=== PATIENT | male | born 1960 | race Caucasian/White ===

== ENCOUNTER 2016-07-14 14:18 | Emergency (ER) | payer OTHER ==
--- NOTE | 2016-07-14 17:54 | DIAGNOSTIC IMAGING REPORT ---
PROCEDURE: CT SOFT TISSUE NECK WITH CONT INDICATION: Submandibular swelling. Pain. TECHNIQUE: 94 ml of Isovue 370 injected intravenously and axial images were obtained from the skull base through the upper mediastinum with sagittal and coronal reformations. In addition, angled axial oblique images were obtained ( avoiding dental hardware). COMPARISON: None. FINDINGS: There is mild to moderate generalized soft tissue edema of the superficial subcutaneous tissues of the submandibular region (superficial to the platysma). This is associated with mildly prominent submandibular lymph nodes. There is no evidence of fluid collection or abscess. The rest of the soft tissues of the neck are within normal limits. Airway, thyroid gland, submandibular glands, and parotid glands are within normal limits. Sinuses and mastoids are within normal limits (minor mucosal thickening in the maxillary sinuses appears chronic). Portions of the mandible are seen (of partially obscured by metal dental artifact). Moderate degenerate changes cervical spine. IMPRESSION: 1. Mild to moderate generalized edema of the superficial subcutaneous tissues of the submandibular region (superficial to the platysma). 2. Mildly prominent submandibular lymph nodes. 3. Findings are most compatible with superficial submandibular cellulitis. 4. No evidence of fluid collection or abscess. 5. Findings discussed with Dr. Laz Banuelos. All CT scans at this facility use dose modulation, iterative reconstruction, and/or weight-based dosing when appropriate to reduce radiation dose to as low as reasonably achievable.
--- NOTE | 2016-07-14 17:57 | ED NURSING NOTES ---
Clinical Report - Nurses [facility] [address] [place] [address] 07/14/2016 14:21 Patient: JANELL LEI TRIAGE Triage time 14:59 Jul 14 2016. Chief Complaint: "FLU", FEVER and BODY ACHES and known FLU EXPOSURE. Alert. No acute distress. --15:09 Jenny Parson R.N. 14:59 07/14/16. BP: 144/60. HR: 73. RR: 18. O2 saturation: 97%. Pain level now 8/10. --15: Jenny Parson R.N. Acuity: LEVEL 4. --15: Jenny Parson R.N. Weight: 136 kg stated. Height/Length: 70 inches Per Patient. BMI: 43. --14:59 Jenny Parson R.N. Medications ALPRAZolam Oral 0.5 mg, as needed. --15:05 Jenny Parson R.N. Naproxen Oral 500 mg, daily. --15:05 Jenny Parson R.N. Atorvastatin Calcium Oral 40 mg. --15:05 Jenny Parson R.N. Lisinopril Oral 12.5 mg. --15:06 Jenny Parson R.N. Medication/allergy information source: the patient. --15:09 Jenny Parson R.N. Allergies None. --15:06 Jenny Parson R.N. History Arrived by private vehicle. Historian: patient. Accompanied by family. Primary physician (Dr. Basurto). ( Sick since the , saw Dr. Basurto for "cold" and sent home. Pt states he is getting worse, swollen glands, fever, muscle aches.). Onset. (since ). He has had contact with a sick individual. He has had chills, fatigue and a headache. Treatment CODING COMPLIANCE SPECIALIST: (nothing). PAST MEDICAL HX: Immunizations: seasonal influenza. SOCIAL HX: Never smoker. Alcohol use. No drug use. No recent travel. No known contact with a sick individual. FALL RISK ASSESSMENT: Fall risk assessment completed. No fall risk identified. NUTRITIONAL RISK ASSESSMENT: The nutritional risk assessment revealed no deficiencies. FUNCTIONAL ASSESSMENT: Functional assessment: no impairments noted. LEARNING NEEDS ASSESSMENT: The learning needs assessment revealed no barriers. SKIN INTEGRITY ASSESSMENT: Skin integrity risk assessment completed. No skin integrity risk identified. --15:09 Jenny Prason R.N. PROBLEMS: Anxiety Reaction. Hypertension. Hypercholesterolemia. --15:07 Jenny Parson R.N. ADDITIONAL SURGERIES: Appendectomy. Carpal Tunnel Surgery. Knee Surgery. Lap Band. Spermadical Marjorie. --15:07 Jenny Parson R.N. Interventions ID band on patient. To room. --15:09 Jenny Parson R.N. NURSING PROGRESS NOTES :patient confirmed. Flu swab obtained by RN via nasal swab. Labeled in the presence of the patient. --15:12 Jenny Parson R.N. 16:33 07/14/16. BP: 157/92. HR: 86. RR: 16. O2 saturation: 96%. Temp: 98.6 F (oral). Pain level now: 01/19. --16:35 Arthur Lopez R.N. The patient reports no complaints and he is calm and resting quietly. GENERAL / NEURO / PSYCH: The patient reports headache. RESPIRATORY: The patient reports cough. No respiratory distress. Breath sounds normal. CVS: Capillary refill within normal limits. GI / : The patient reports diarrhea. Abdomen nontender. SKIN: Skin is warm and dry. Call light placed in reach. Side rails up x 1. Bed placed in lowest position. Brakes of bed on. --16:35 Arthur Lopez R.N. 17:02 07/14/2016 Site #1 started via IV in the right forearm with an 18g angiocath; one attempt. Blood drawn: rainbow set. Saline lock flushed with 10 mL saline. --17:02 Arthur Lopez R.N. 18:00 07/14/2016 Bactrim DS (Sulfamethoxazole-TMP DS) PO Tablets 1 tab given. Allergies verified and confirmed 5 rights. --18:00 Arthur Lopez R.N. DISPOSITION / DISCHARGE Condition at departure: improved. The goals identified in the patient's plan of care were met. No learning barriers present. Discharge instructions provided and reviewed with the patient. Reviewed medication(s) side effects, precautions, dosing and course information. Prescription(s) given to the patient. Reviewed fever care instructions. Reviewed referral to a primary care physician. Patient verbalized understanding. Written instructions provided in Iranian. The patient was discharged home and accompanied by spouse. He left the Emergency Department ambulatory and via private vehicle. Spouse driving. FALL RISK ASSESSMENT: Fall risk assessment completed. No fall risk identified. --18:05 Arthur Lopez R.N. Departure time: 1805 PM. --18:05 Arthur Lopez R.N. 18:06 07/14/16. BP: 130/81. HR: 72. RR: 16. O2 saturation: 99%. Temp: 98.2 F (oral). Pain level now: 0/10. --18:07 Arthur Lopez R.N. Departure time: 1806 PM. --18:07 Arthur Lopez R.N. Locked/Released at 07/14/2016 18:07 by Arthur Lopez R.N.
--- NOTE | 2016-07-14 17:57 | ED ORDER SUMMARY ---
..... Patient: JANELL LEI OrderSheet [facility] VisitID: [id number] [address] [place] [address] 55y, M Registration Date/Time: 07/14/2016 ORDER SHEET Weight: 136.0 kg (stated) Allergies: None GENERAL ORDERS: Rapid Influenza Screen (Nasal Pharyngeal) (nasal) Urgent (15:09 07/14/2016 SBalde R.N. per protocol) (Ack 15:10 IJurca ER Tech1) (Sent 15:13 IJurca ER Tech1) (16:49 IJurca ER Tech1) CT Soft Tissue Neck w Cont (Yes) (pending ) Urgent (16:48 07/14/2016 Wesley WHITFIELD) (Ack 16:51 IJurca ER Tech1) (17:02 HOShaughnessy R.N.) CBC w Diff Urgent (16:48 07/14/2016 Wesley WHITFIELD) (Ack 16:51 IJurca ER Tech1) (17:02 HOShaughnessy R.N.) CMP Urgent (16:48 07/14/2016 Wesley WHITFIELD) (Ack 16:51 IJurca ER Tech1) (17:02 HOShaughnessy R.N.) MEDICATION ORDERS: Bactrim DS PO (Tablet 800-160 mg) 1 tab (NOW) (17:56 07/14/2016 Wesley WHITFIELD) (18:00 HOShaughnessy R.N.) IV FLUIDS: ORDER SHEET NOTES: [Electronically signed by Arthur Lopez R.N. (18:07 07/14/2016)] [Electronically signed by Laz Banuelos MD (19:23 07/15/2016)] [Electronically locked/signed by Arthur Lopez R.N. (18:07 07/14/2016)]
--- NOTE | 2016-07-14 17:57 | ED ORDER SUMMARY ---
..... Patient: JANELL LEI OrderSheet [facility] VisitID: [id number] [address] [place] [address] 55y, M Registration Date/Time: 07/14/2016 ORDER SHEET Weight: 136.0 kg (stated) Allergies: None GENERAL ORDERS: Rapid Influenza Screen (Nasal Pharyngeal) (nasal) Urgent (15:09 07/14/2016 SBalde R.N. per protocol) (Ack 15:10 IJurca ER Tech1) (Sent 15:13 IJurca ER Tech1) (16:49 IJurca ER Tech1) CT Soft Tissue Neck w Cont (Yes) (pending ) Urgent (16:48 07/14/2016 Wesley WHITFIELD) (Ack 16:51 IJurca ER Tech1) (17:02 HOShaughnessy R.N.) CBC w Diff Urgent (16:48 07/14/2016 Wesley WHITFIELD) (Ack 16:51 IJurca ER Tech1) (17:02 HOShaughnessy R.N.) CMP Urgent (16:48 07/14/2016 eWsley WHITFIELD) (Ack 16:51 IJurca ER Tech1) (17:02 HOShaughnessy R.N.) MEDICATION ORDERS: Bactrim DS PO (Tablet 800-160 mg) 1 tab (NOW) (17:56 07/14/2016 Wesley WHITFIELD) (18:00 HOShaughnessy R.N.) IV FLUIDS: ORDER SHEET NOTES: [Electronically signed by Arthur Lopez R.N. (18:07 07/14/2016)] [Electronically signed by Laz Banuelos MD (19:23 07/15/2016)] [Electronically locked/signed by Arthur Lopez R.N. (18:07 07/14/2016)]
--- NOTE | 2016-07-14 17:57 | ED CLINICAL REPORT ---
Clinical Report - Physicians/Mid Levels [facility] [address] [place] [address] 07/14/2016 14:21 Patient: JANELL LEI Time Seen: 16:38. Arrived- By private vehicle. Historian- patient. HISTORY OF PRESENT ILLNESS Chief Complaint: MASS UNDER CHIN. (Swelling under the chin and neck 4 days. Mildly painful. No dental pain 07/04 - diarrhea, fever). Is still present. It was gradual in onset. The illness is described as moderate. No cough, sputum production, difficulty breathing or chest discomfort or pain. No chills, sinus pressure, sinus drainage or ear pain. He has had a mild sore throat. Recent medical care: The patient was seen recently by a health care provider. ( Bill Barrera - Fever, chills - Dx Virus.). REVIEW OF SYSTEMS No nausea, vomiting, abdominal pain or skin rash. PAST HISTORY PCP: Sb PROBLEMS: DIABETES Anxiety Reaction. Hypertension. Hypercholesterolemia. ADDITIONAL SURGERIES: Appendectomy. Carpal Tunnel Surgery. Knee Surgery. Lap Band. Spermatocele. SOCIAL HISTORY Never smoker. ADDITIONAL NOTES The nursing notes have been reviewed. PHYSICAL EXAM Vital Signs: 07/14/2016 18:06 BP: 130/81. HR: 72. RR: 16. O2 saturation: 99%. Temp: 98.2 F. Pain level now: . 07/14/2016 16:33 BP: 157/92. HR: 86. RR: 16. O2 saturation: 96%. Temp: 98.6 F. Pain level now: 01/19. 07/14/2016 14:59 BP: 144/60. HR: 73. RR: 18. O2 saturation: 97%. Appearance: Alert. Patient in mild distress. Eyes: Pupils equal, round and reactive to light. ENT: Mouth ulcerations present. Pharyngeal erythema. Tonsillar exudate present. Peritonsillar mass. Changed voice. (No significant mass or tenderess in the sub lingual area. There is a somewhat tender area with 4x4x1 cm are in the subcutaneous area of the submental triangle). Neck: No lymphadenopathy. CVS: Heart sounds normal. Respiratory: No respiratory distress. Breath sounds normal. Abdomen: Soft and nontender. LABS, X-RAYS, AND EKG CT Head: (PROCEDURE: CT SOFT TISSUE NECK WITH CONT INDICATION: Submandibular swelling. Pain. TECHNIQUE: 94 ml of Isovue 370 injected intravenously and axial images were obtained from the skull base through the upper mediastinum with sagittal and coronal reformations. In addition, angled axial oblique images were obtained (avoiding dental hardware). COMPARISON: None. FINDINGS: There is mild to moderate generalized soft tissue edema of the superficial subcutaneous tissues of the submandibular region (superficial to the platysma). This is associated with mildly prominent submandibular lymph nodes. There is no evidence of fluid collection or abscess. The rest of the soft tissues of the neck are within normal limits. Airway, thyroid gland, submandibular glands, and parotid glands are within normal limits. Sinuses and mastoids are within normal limits (minor mucosal thickening in the maxillary sinuses appears chronic). Portions of the mandible are seen (of partially obscured by metal dental artifact). Moderate degenerate changes cervical spine. IMPRESSION: 1. Mild to moderate generalized edema of the superficial subcutaneous tissues of the submandibular region (superficial to the platysma). 2. Mildly prominent submandibular lymph nodes. 3. Findings are most compatible with superficial submandibular cellulitis. 4. No evidence of fluid collection or abscess. 5. Findings discussed with Dr. Laz Banuelos. All CT scans at this facility use dose modulation, iterative reconstruction, and/or weight-based dosing when appropriate to reduce radiation dose to as low as reasonably achievable. Dictated by: TERRIE OLSON MD D: THOMAS;07/14/161753 <Electronically signed by TERRIE OLSON MD in OV> 07/14/161753). The study was interpreted by the radiologist and discussed with the radiologist. Laboratory Tests: CBC w Diff: (LALO: 07/14/2016 17:00) ( MsgRcvd 07/14/2016 17:09) Final results Test Result Flag Units (Reference) WHITE BLOOD COUNT 7.0 K/uL (4.5-11.5) RED BLOOD COUNT 4.28 L M/uL (4.50-5.90) HEMOGLOBIN 14.4 gm/dL (13.5-17.5) HEMATOCRIT 42.8 % (41.0-53.0) MEAN CELL VOLUME 100 fL (80-100) MEAN CORPUSCULAR HGB 34 pg (26-34) MEAN CORPUSCULAR HGB CONC 34 g/dL (31-37) RED CELL DISTRIBUTION WIDTH 13.1 % (11.6-14.8) PLATELET COUNT 189 K/uL (150-400) NEUTROPHIL % 56.4 % (50-75) LYMPH % 30.4 % (25-40) MONO % 8.0 % (3-14) EOSINOPHIL % 4.5 H % (0-4) BASOPHIL % 0.7 % (0-2) CMP: (LALO: 07/14/2016 17:00) ( MsgRcvd 07/14/2016 17:21) Final results Test Result Flag Units (Reference) GLUCOSE 136 H mg/dL (70-110) BUN 11 mg/dL (7-18) CREATININE 0.7 mg/dL (0.6-1.3) Estimated GFR >60 mL/min Estimated GFR- >60 mL/min Note: Persistent reduction over 3 months in eGFR<60 mL/min/1.73 m2 defines CKD. Patients with eGFR values>=60 mL/min/1.73 m2 may also have CKD if evidence ofpersistent proteinuria. Additional information may be foundat www.kidney.org. SODIUM 143 mmol/L (136-145) POTASSIUM 3.4 L mmol/L (3.5-5.1) CHLORIDE 104 mmol/L (98-107) CARBON DIOXIDE 27 mmol/L (21-32) CALCIUM 8.5 mg/dL (8.5-10.1) TOTAL PROTEIN 7.8 g/dL (6.4-8.2) ALBUMIN 3.4 g/dL (3.3-5.0) BILIRUBIN, TOTAL 0.6 mg/dL (0.0-1.0) ALKALINE PHOSPHATASE 57 U/L (46-116) AST (SGOT) 98 H U/L (15-37) ALT (SGPT) 80 H U/L (12-78) Rapid Influenza Screen: (LALO: 07/14/2016 15:00) ( MsgRcvd 07/14/2016 15:33) Final results SPECIMEN DESCRIPTION: NASAL Test Result Flag Units (Reference) RAPID INFLUENZA SCREEN DATE: 07/14/16 INFLUENZA A: NEGATIVE SCREEN FOR INFLUENZA A INFLUENZA B: NEGATIVE SCREEN FOR INFLUENZA B . PROGRESS AND PROCEDURES Course of Care: This is not Nikhil's angina nor an abcess. It is not a lipoma. It is likely a celllitis but it is fairly bland in appearance and is somewhat obscured by facial hair. Initial treatment as cellulitis is warranted. CLINICAL IMPRESSION Cellulitis of the neck. INSTRUCTIONS (THE CAUSE OF THE SWELLING LOOKS MOST LIKE A CELLULITIS . THERE WAS NO ABSCESS OR CYST. IMMEDIATE RECHECK FOR WORSE PAIN, SWELLING, PROBLEMS BREATHING). Prescription Medications: Trimethoprim-Sulfamethoxazole DS: take 1 tablet orally every 12 hours for 7 days. Dispense fourteen (14). No refills. Follow-up: Follow up with doctor BARRERA in five days. Understanding of the discharge instructions verbalized by patient and family. (Electronically signed by Laz Banuelos MD 07/15/2016 19:23)
--- NOTE | 2016-07-15 19:23 | ED MED RECONCILIATION SUMMARY ---
Patient: JANELL LEI Medication Reconciliation Report [facility] VisitID: [id number] [address] [place] [address] 55y, M Registration Date/Time: 07/14/2016 Weight: 136.0 kg Height/Length: 70 in. BMI: 43.0 ALLERGIES: None The patient's Home Medications are listed below: THE FOLLOWING MEDICATIONS NEED TO BE RECONCILED: ALPRAZolam Oral 0.5 mg Atorvastatin Calcium Oral 40 mg Lisinopril Oral 12.5 mg Naproxen Oral 500 mg, daily The source(s) of the original Home Medication information: patient The following Medications were given to the patient in the Emergency Department: Bactrim DS [PO] PO 1 tab, administered: 07/14/2016 6:00:00 PM The following Medications were prescribed to the patient: Trimethoprim-Sulfamethoxazole DS: take 1 tablet orally every 12 hours for 7 days. Dispense fourteen (14). No refills. -- Laz Banuelos MD
--- NOTE | 2016-07-15 19:23 | ED DISCHARGE INSTRUCTIONS ---
Patient: JANELL LEI General Instructions [facility] VisitID: [id number] [address] [place] [address] 55y, M Registration Date/Time: 07/14/2016 Cellulitis of the neck. INSTRUCTIONS (THE CAUSE OF THE SWELLING LOOKS MOST LIKE A CELLULITIS . THERE WAS NO ABSCESS OR CYST. IMMEDIATE RECHECK FOR WORSE PAIN, SWELLING, PROBLEMS BREATHING). Prescription Medications: Trimethoprim-Sulfamethoxazole DS: take 1 tablet orally every 12 hours for 7 days. Dispense fourteen (14). No refills. Follow-up: Follow up with doctor BRUCE in five days. Understanding of the discharge instructions verbalized by patient and family. ADDITIONAL INFORMATION Cellulitis You have an infection of the skin known as cellulitis. This usually starts with a scrape, cut, insect bite, blister or other opening in the skin which becomes infected. This is a serious condition. It must be watched closely to be sure the infection is not spreading. With antibiotic treatment, the size of the red area will gradually shrink in size until the skin returns to normal. This will take 7-10 days. The red area should never increase in size once the antibiotic medicine has been started. Occasionally, an infection will be resistant to one antibiotic and another one will have to be used. Home Care: 1) Limit the use of the affected part, since excess movement can cause the infection to spread. 2) If the infection is on your leg, walk as little as possible during the first few days of the treatment. Keep your leg elevated while sitting. This will reduce swelling. 3) Take all of the antibiotic medicine exactly as directed until it is gone. Be careful not to miss any doses, especially during the first seven days. Follow Up with your doctor or this facility as directed. Check the infected area daily for the warning signs listed below. Get Prompt Medical Attention if any of the following occur: -- Spreading area of redness -- Increasing swelling or pain -- Appearance of pus or drainage -- Fever over 100.4 F (38.0 C) oral, or over 101.4 F (38.6 C) rectal, after two days on antibiotics You have been given the following additional information: Cellulitis (Electronically signed by Laz Banuelos MD 07/15/2016 19:23)
--- NOTE | 2016-07-15 19:23 | ED MED RECONCILIATION SUMMARY ---
Patient: JANELL LEI Medication Reconciliation Report [facility] VisitID: [id number] [address] [place] [address] 55y, M Registration Date/Time: 07/14/2016 Weight: 136.0 kg Height/Length: 70 in. BMI: 43.0 ALLERGIES: None The patient's Home Medications are listed below: THE FOLLOWING MEDICATIONS NEED TO BE RECONCILED: ALPRAZolam Oral 0.5 mg Atorvastatin Calcium Oral 40 mg Lisinopril Oral 12.5 mg Naproxen Oral 500 mg, daily The source(s) of the original Home Medication information: patient The following Medications were given to the patient in the Emergency Department: Bactrim DS [PO] PO 1 tab, administered: 07/14/2016 6:00:00 PM The following Medications were prescribed to the patient: Trimethoprim-Sulfamethoxazole DS: take 1 tablet orally every 12 hours for 7 days. Dispense fourteen (14). No refills. -- Laz Banuelos MD
--- NOTE | 2016-07-15 19:23 | ED MAR SUMMARY ---
..... Medication Administration Record [facility] [address] [place] [address] Patient: JANELL LEI Visit ID: [id number] 55y, M Weight: 136.0 kg Height/Length: 70 in BMI: 43 ALLERGIES: None Given 18:00 07/14/2016 Arthur Lopez R.N. Medication Administered: BACTRIM DS [PO] (SULFAMETHOXAZOLE-TMP DS), Dose: 1 tab Tablets PO. Medication Ordered: Bactrim DS PO (Tablet 800-160 mg) 1 tab (NOW).
--- NOTE | 2016-07-15 19:23 | ED MAR SUMMARY ---
..... Medication Administration Record [facility] [address] [place] [address] Patient: JANELL LEI Visit ID: [id number] 55y, M Weight: 136.0 kg Height/Length: 70 in BMI: 43 ALLERGIES: None Given 18:00 07/14/2016 Arthur Lopez R.N. Medication Administered: BACTRIM DS [PO] (SULFAMETHOXAZOLE-TMP DS), Dose: 1 tab Tablets PO. Medication Ordered: Bactrim DS PO (Tablet 800-160 mg) 1 tab (NOW).
--- NOTE | 2016-07-15 19:23 | ED DISCHARGE INSTRUCTIONS ---
Patient: JANELL LEI General Instructions [facility] VisitID: [id number] [address] [place] [address] 55y, M Registration Date/Time: 07/14/2016 Cellulitis of the neck. INSTRUCTIONS (THE CAUSE OF THE SWELLING LOOKS MOST LIKE A CELLULITIS . THERE WAS NO ABSCESS OR CYST. IMMEDIATE RECHECK FOR WORSE PAIN, SWELLING, PROBLEMS BREATHING). Prescription Medications: Trimethoprim-Sulfamethoxazole DS: take 1 tablet orally every 12 hours for 7 days. Dispense fourteen (14). No refills. Follow-up: Follow up with doctor BRUCE in five days. Understanding of the discharge instructions verbalized by patient and family. ADDITIONAL INFORMATION Cellulitis You have an infection of the skin known as cellulitis. This usually starts with a scrape, cut, insect bite, blister or other opening in the skin which becomes infected. This is a serious condition. It must be watched closely to be sure the infection is not spreading. With antibiotic treatment, the size of the red area will gradually shrink in size until the skin returns to normal. This will take 7-10 days. The red area should never increase in size once the antibiotic medicine has been started. Occasionally, an infection will be resistant to one antibiotic and another one will have to be used. Home Care: 1) Limit the use of the affected part, since excess movement can cause the infection to spread. 2) If the infection is on your leg, walk as little as possible during the first few days of the treatment. Keep your leg elevated while sitting. This will reduce swelling. 3) Take all of the antibiotic medicine exactly as directed until it is gone. Be careful not to miss any doses, especially during the first seven days. Follow Up with your doctor or this facility as directed. Check the infected area daily for the warning signs listed below. Get Prompt Medical Attention if any of the following occur: -- Spreading area of redness -- Increasing swelling or pain -- Appearance of pus or drainage -- Fever over 100.4 F (38.0 C) oral, or over 101.4 F (38.6 C) rectal, after two days on antibiotics You have been given the following additional information: Cellulitis (Electronically signed by Laz Banuelos MD 07/15/2016 19:23)
== END 2016-07-14 18:05 | disposition home or self-care (01) ==
LOC: ED SRH 14:18
DX: L03.221 Cellulitis of neck (principal); I10 Essential (primary) hypertension; E11.9 Type 2 diabetes mellitus without complications; E78.00 Pure hypercholesterolemia, unspecified; Z79.899 Other long term (current) drug therapy
CPT/HCPCS: 90100; 91400; 95059